=== PATIENT | female | born 1940 | race Caucasian/White ===

== ENCOUNTER 2018-12-11 22:50 | Emergency (ER) | payer OTHER ==
[~2018-12-11] VITALS: Ht 167.6 cm; Wt 81.6 kg
[2018-12-11] MEDS ORDERED: PNEU16DI2 (23:25)
[2018-12-11] MEDS ORDERED: WELLBUTRIN SR200 MG (23:25)
[2018-12-11] MEDS ORDERED: AVALIDE 300-121 EACH (23:25)
[2018-12-11] MEDS ORDERED: CRESTOR5 MG (23:25)
[2018-12-12] MEDS ORDERED: ZITHROMAX500 MG PO (06:24)
[2018-12-12] MEDS ORDERED: NABUMETONE750 MG PO (06:24)
== END 2018-12-12 06:36 | disposition home or self-care (01) ==
LOC: ER 22:50
DX: S01.01XA Laceration without foreign body of scalp, initial encounter (principal); S70.02XA Contusion of left hip, initial encounter; S70.01XA Contusion of right hip, initial encounter; S19.89XA Other specified injuries of other specified part of neck, initial encounter; S39.82XA Other specified injuries of lower back, initial encounter; W01.198A Fall on same level from slipping, tripping and stumbling with subsequent striking against other object, initial encounter; Y93.89 Activity, other specified; Y92.018 Other place in single-family (private) house as the place of occurrence of the external cause; Y99.8 Other external cause status